=== PATIENT | female | born 1990 | race Caucasian/White ===

== ENCOUNTER 2022-06-08 00:02 | Emergency (ER) | payer OTHER ==
[~2022-06-08] VITALS: Ht 172.7 cm; Wt 65.9 kg
[2022-06-08] MEDS ORDERED: DERMABOND TOPICAL SKIN ADHESIVE TOP ONE (01:15)
[2022-06-08 01:34] VITALS: BP 130/89
== END 2022-06-08 02:12 | disposition home or self-care (01) ==
LOC: M ED 00:02
DX: S01.91XA Laceration without foreign body of unspecified part of head, initial encounter (principal); W19.XXXA Unspecified fall, initial encounter; Y92.410 Unspecified street and highway as the place of occurrence of the external cause; Y93.01 Activity, walking, marching and hiking; Z91.89 Other specified personal risk factors, not elsewhere classified